=== PATIENT | female | born 1970 | race Caucasian/White ===

== ENCOUNTER 2018-08-02 18:30 | Inpatient (IN) | payer BC ==
[2018-08-02] MEDS: AZTREONAM 1 GM/NS (PMX) 50 ML IVPB (19:09)
[2018-08-02 20:00] LABS: ADD MAN DIFF? NO
[2018-08-02 20:03] LABS: WHITE BLOOD COUNT 10.2 10^3/ul (4.8-10.8)
[2018-08-02 20:03] LABS: BASOPHIL # 0.1 10^3/ul (0.0-0.1); BASOPHILS % 0.5 % (0.0-2.0); EOSINOPHILS # 0.2 10^3/ul (0.0-0.5); EOSINOPHILS % 1.5 % (0.0-7.0); HEMOGLOBIN 12.9 g/dl (12.0-16.0); LYMPHOCYTES # 1.7 10^3/ul (0.8-2.9); LYMPHOCYTES % 17.1 % (15.0-51.0); MEAN CORPUSCULAR HEMOGLOBIN 31.2 pg (29.0-33.0); MEAN CORPUSCULAR HGB CONC 34.9 g/dl (32.0-37.0); MEAN CORPUSCULAR VOLUME 89.4 fl (82.0-101.0); MEAN PLATELET VOLUME 11.3 fl (7.4-10.4); MONOCYTE # 0.5 10^3/ul (0.3-0.9); MONOCYTES % 4.8 % (0.0-11.0); NEUTROPHIL # 7.7 10^3/ul (1.6-7.5); NEUTROPHILS % 75.4 % (39.0-77.0); PLATELET COUNT 169 10^3/UL (140-415); RED BLOOD COUNT 4.14 10^6/ul (4.20-5.40); RED CELL DISTRIBUTION WIDTH 13.2 % (11.5-14.5)
[2018-08-02] MEDS: morphine 4 MG/ML VIAL IV (20:08)
[2018-08-02] MEDS: ONDANSETRON 4 MG INJ IV (20:08)
[2018-08-02] MEDS: SODIUM CHLORIDE 0.9% 1L BAG IV* (20:09)
[2018-08-02] MEDS: ACETAMINOPHEN 325 MG TAB PO (20:09)
[2018-08-02] MEDS: VANCOMYCIN 1 GM (PMX) 250 ML IVPB (20:10)
[2018-08-02 20:18] LABS: ADD UMIC YES; UR ASCORBIC ACID NEGATIVE (NEGATIVE); UR BACTERIA FEW /HPF (NONE SEEN); UR BILIRUBIN (Dip) NEGATIVE (NEGATIVE); UR BLOOD (Dip) 2+ mg/dL (NEGATIVE); UR CLARITY CLOUDY (CLEAR); UR COLOR YELLOW (YELLOW); UR GLUCOSE (Dip) 2+ mg/dL (NEGATIVE); UR KETONES (Dip) NEGATIVE (NEGATIVE); UR LEUKOCYTE ESTERASE (Dip) 2+ Leu/ul (NEGATIVE); UR NITRITE (Dip) POSITIVE (NEGATIVE); UR NONSQUAMOUS EPITHELIAL CELL 2 /HPF (NONE SEEN); UR RBC 122 /HPF (0-5); UR SPECIFIC GRAVITY (Dip) 1.015 (1.003-1.030); UR TOTAL PROTEIN (Dip) 3+ mg/dl (NEGATIVE); UR UROBILINOGEN (Dip) NEGATIVE (NEGATIVE); UR WBC > 182 /HPF (0-5)
[2018-08-02 20:23] LABS: ALANINE AMINOTRANSFERASE 53 IU/L (13-69); ALBUMIN 4.3 g/dl (3.3-4.9); ALBUMIN/GLOBULIN RATIO 1.48; ALKALINE PHOSPHATASE 138 IU/L (42-121); ANION GAP 13 (5-13); ASPARTATE AMINO TRANSFERASE 61 IU/L (15-46); BILIRUBIN,INDIRECT 0.3 mg/dl (0-1.1); BILIRUBIN,TOTAL 0.3 mg/dl (0.2-1.3); BLOOD UREA NITROGEN 13 mg/dl (7-20); CALCIUM 9.8 mg/dl (8.4-10.2); CARBON DIOXIDE 21 mmol/L (21-31); CHLORIDE 105 mmol/L (97-110); CREATININE 0.68 mg/dl (0.44-1.00); Estimated GFR > 60 mL/min (>60); GLUCOSE 204 mg/dl (70-220); PARTIAL THROMBOPLASTIN TIME 34.3 Sec (23.0-35.0); POTASSIUM 3.7 mmol/L (3.5-5.1); PROTIME 12.3 Sec (11.9-14.9); SODIUM 139 mmol/L (135-144); TOTAL PROTEIN 7.2 g/dl (6.1-8.1)
[2018-08-02 20:33] LABS: TROPONIN-I < 0.012 ng/ml (0.000-0.120)
[2018-08-02] MEDS ORDERED: NA PHOSPHATE/BIPHOS 133 ML ENEMA PR (21:30)
[2018-08-02] MEDS ORDERED: DOCUSATE SODIUM 100 MG CAP PO (21:30)
[2018-08-02] MEDS ORDERED: ALPRAZOLAM 0.25 MG TAB PO (21:30)
[2018-08-02] MEDS ORDERED: BISACODYL (EC) 5 MG TAB PO (21:30)
[2018-08-02] MEDS ORDERED: ACETAMINOPHEN 325 MG TAB PO (21:30)
[2018-08-02] MEDS ORDERED: NACL 0.9% 3 ML SYG IV (21:30)
[2018-08-02] MEDS ORDERED: VANCOMYCIN IV PER PHARMACY XX (21:30)
[2018-08-02] MEDS ORDERED: ONDANSETRON 4 MG INJ IV (21:30)
[2018-08-02] MEDS ORDERED: GLUCOSE GEL 15 GRAM TUBE PO ×2 (22:30)
[2018-08-02] MEDS ORDERED: GLUCOSE GEL 15 GRAM TUBE BUCCAL (22:30)
[2018-08-02] MEDS ORDERED: DEXTROSE 50% 50 ML SYRINGE IV ×2 (22:30)
[2018-08-02] MEDS ORDERED: GLUCAGON 1 MG INJ IM (22:30)
[2018-08-02] MEDS: OXYCODONE/ACETAMINOPHEN (5/325) TAB PO (22:49)
[2018-08-03] MEDS: ACCU-CHEK XX (02:00)
[2018-08-03] MEDS: OXYCODONE/ACETAMINOPHEN (5/325) TAB PO ×3 (04:45→17:58)
[2018-08-03] MEDS: PANTOPRAZOLE (EC) 40 MG TAB PO (05:28)
[2018-08-03] MEDS: LEVOFLOXACIN 500 MG TAB PO (05:28)
[2018-08-03 05:56] LABS: ADD MAN DIFF? NO
[2018-08-03 06:01] LABS: BASOPHILS % 0.4 % (0.0-2.0); EOSINOPHILS # 0.2 10^3/ul (0.0-0.5); EOSINOPHILS % 1.6 % (0.0-7.0); HEMATOCRIT 33.1 % (37.0-47.0); HEMOGLOBIN 11.4 g/dl (12.0-16.0); LYMPHOCYTES # 1.5 10^3/ul (0.8-2.9); LYMPHOCYTES % 15.2 % (15.0-51.0); MEAN CORPUSCULAR HEMOGLOBIN 31.7 pg (29.0-33.0); MEAN CORPUSCULAR HGB CONC 34.4 g/dl (32.0-37.0); MEAN CORPUSCULAR VOLUME 91.9 fl (82.0-101.0); MEAN PLATELET VOLUME 11.5 fl (7.4-10.4); MONOCYTE # 0.6 10^3/ul (0.3-0.9); MONOCYTES % 5.7 % (0.0-11.0); NEUTROPHIL # 7.7 10^3/ul (1.6-7.5); NEUTROPHILS % 76.4 % (39.0-77.0); PLATELET COUNT 148 10^3/UL (140-415); RED CELL DISTRIBUTION WIDTH 13.7 % (11.5-14.5)
[2018-08-03 06:24] LABS: ANION GAP 9 (5-13); BLOOD UREA NITROGEN 11 mg/dl (7-20); CARBON DIOXIDE 22 mmol/L (21-31); CHLORIDE 107 mmol/L (97-110); GLUCOSE 259 mg/dl (70-220); POTASSIUM 4.3 mmol/L (3.5-5.1); SODIUM 138 mmol/L (135-144)
[2018-08-03 06:25] LABS: ALANINE AMINOTRANSFERASE 45 IU/L (13-69); ALBUMIN 3.8 g/dl (3.3-4.9); ALBUMIN/GLOBULIN RATIO 1.22; ALKALINE PHOSPHATASE 132 IU/L (42-121); ASPARTATE AMINO TRANSFERASE 42 IU/L (15-46); BILIRUBIN,INDIRECT 0.5 mg/dl (0-1.1); BILIRUBIN,TOTAL 0.5 mg/dl (0.2-1.3); CALCIUM 8.9 mg/dl (8.4-10.2); CREATININE 0.65 mg/dl (0.44-1.00); Estimated GFR > 60 mL/min (>60); TOTAL PROTEIN 6.9 g/dl (6.1-8.1)
[2018-08-03 06:28] LABS: LACTIC ACID 2.4 mmol/L (0.5-2.0)
[2018-08-03 07:21] LABS: HEMOGLOBIN A1C 8.2 % (0-5.9)
[2018-08-03] MEDS: VANCOMYCIN 1 GM 250 ML IVPB ×2 (08:31→19:53)
[2018-08-03] MEDS: ARTIFICIAL TEARS 15 ML OPH BOTH EYES ×4 (08:31→20:39)
[2018-08-03] MEDS: metFORMIN 500 MG TAB PO ×2 (08:31→17:52)
[2018-08-03] MEDS: GEMFIBROZIL 600 MG TAB PO ×2 (08:31→20:39)
[2018-08-03] MEDS: ARIPIPRAZOLE 5 MG TAB PO (08:32)
[2018-08-03] MEDS: DICLOFENAC (EC) 75 MG TAB PO ×2 (08:32→09:00)
[2018-08-03] MEDS: HYDROXYCHLOROQUINE 200 MG TAB PO ×2 (08:32→09:00)
[2018-08-03] MEDS: AMLODIPINE 2.5 MG TAB PO ×2 (08:33→20:40)
[2018-08-03] MEDS: LOSARTAN 25 MG TAB PO ×2 (08:33→20:41)
[2018-08-03] MEDS: INSULIN ASPART [NOVOLOG] 3 ML PEN SC ×7 (08:39→20:41)
[2018-08-03] MEDS: ENOXAPARIN 30 MG/0.3 ML SYG SC (08:40)
[2018-08-03] MEDS ORDERED: PANTOPRAZOLE (EC) 40 MG TAB PO (09:00)
[2018-08-03] MEDS ORDERED: ARIPIPRAZOLE 5 MG TAB PO (09:00)
[2018-08-03 15:17] LABS: IRON 55 ug/dl (35-150)
[2018-08-03 15:26] LABS: % IRON SATURATION 19 % SAT (22-52); TOTAL IRON BINDING CAPACITY 283 ug/dl (241-421)
[2018-08-03 16:06] LABS: HEPATITIS C VIRAL ANTIBODY NEGATIVE (NEGATIVE)
[2018-08-03] MEDS: ONDANSETRON 4 MG INJ IV (19:53)
[2018-08-03] MEDS ORDERED: INSULIN GLARGINE [LANTus] (100 UNITS/ML) SYG SC (20:00)
[2018-08-03] MEDS: ATORVASTATIN 40 MG TAB PO (20:39)
[2018-08-03] MEDS: AMITRIPTYLINE 50 MG TAB PO (20:41)
[2018-08-03] MEDS: INSULIN GLARGINE [LANTus] (100 UNITS/ML) SYG SC (20:43)
[2018-08-03] MEDS: SOD FERRIC GLUC COMPLX 125 MG in SOD CHLORIDE 0.9% 100 ML IVPB (22:19)
[2018-08-04] MEDS: OXYCODONE/ACETAMINOPHEN (5/325) TAB PO ×3 (00:01→14:12)
[2018-08-04] MEDS: ACCU-CHEK XX (01:47)
[2018-08-04] MEDS: PANTOPRAZOLE (EC) 40 MG TAB PO (05:36)
[2018-08-04] MEDS: LEVOFLOXACIN 500 MG TAB PO (05:36)
[2018-08-04 06:01] LABS: ADD MAN DIFF? NO
[2018-08-04 06:05] LABS: BASOPHILS % 0.6 % (0.0-2.0); EOSINOPHILS # 0.2 10^3/ul (0.0-0.5); EOSINOPHILS % 2.6 % (0.0-7.0); HEMATOCRIT 33.4 % (37.0-47.0); HEMOGLOBIN 11.3 g/dl (12.0-16.0); LYMPHOCYTES # 2.1 10^3/ul (0.8-2.9); LYMPHOCYTES % 28.4 % (15.0-51.0); MEAN CORPUSCULAR HEMOGLOBIN 31.4 pg (29.0-33.0); MEAN CORPUSCULAR HGB CONC 33.8 g/dl (32.0-37.0); MEAN CORPUSCULAR VOLUME 92.8 fl (82.0-101.0); MEAN PLATELET VOLUME 11.7 fl (7.4-10.4); MONOCYTE # 0.4 10^3/ul (0.3-0.9); MONOCYTES % 5.9 % (0.0-11.0); NEUTROPHIL # 4.5 10^3/ul (1.6-7.5); NEUTROPHILS % 61.7 % (39.0-77.0); PLATELET COUNT 152 10^3/UL (140-415); RED CELL DISTRIBUTION WIDTH 14.1 % (11.5-14.5)
[2018-08-04 06:05] LABS: WHITE BLOOD COUNT 7.2 10^3/ul (4.8-10.8)
[2018-08-04 06:29] LABS: ALANINE AMINOTRANSFERASE 38 IU/L (13-69); ALBUMIN 3.7 g/dl (3.3-4.9); ALBUMIN/GLOBULIN RATIO 1.12; ALKALINE PHOSPHATASE 139 IU/L (42-121); ANION GAP 8 (5-13); ASPARTATE AMINO TRANSFERASE 37 IU/L (15-46); BILIRUBIN,INDIRECT 0.5 mg/dl (0-1.1); BILIRUBIN,TOTAL 0.5 mg/dl (0.2-1.3); BLOOD UREA NITROGEN 16 mg/dl (7-20); CALCIUM 9.2 mg/dl (8.4-10.2); CARBON DIOXIDE 27 mmol/L (21-31); CHLORIDE 105 mmol/L (97-110); CREATININE 0.79 mg/dl (0.44-1.00); Estimated GFR > 60 mL/min (>60); GLUCOSE 180 mg/dl (70-220); POTASSIUM 4.5 mmol/L (3.5-5.1); SODIUM 140 mmol/L (135-144)
[2018-08-04 06:33] LABS: PHOSPHORUS 3.8 mg/dl (2.5-4.9)
[2018-08-04 06:33] LABS: MAGNESIUM 1.8 mg/dl (1.7-2.5)
[2018-08-04] MEDS: INSULIN ASPART [NOVOLOG] 3 ML PEN SC ×4 (08:07→12:55)
[2018-08-04] MEDS: ARTIFICIAL TEARS 15 ML OPH BOTH EYES ×2 (08:34→12:44)
[2018-08-04] MEDS: metFORMIN 500 MG TAB PO (08:34)
[2018-08-04] MEDS: GEMFIBROZIL 600 MG TAB PO (08:35)
[2018-08-04] MEDS: ARIPIPRAZOLE 5 MG TAB PO (08:35)
[2018-08-04] MEDS: LOSARTAN 50 MG TAB PO (08:36)
[2018-08-04] MEDS: AMLODIPINE 2.5 MG TAB PO (08:36)
[2018-08-04] MEDS: ENOXAPARIN 30 MG/0.3 ML SYG SC (08:41)
[2018-08-04] MEDS: VANCOMYCIN HCL 1.25 GM in SOD CHLORIDE 0.9% 250 ML IVPB (11:17)
[2018-08-04] MEDS: CELECOXIB 200 MG CAP PO (11:17)
[2018-08-04] MEDS ORDERED: INSULIN GLARGINE [LANTus] (100 UNITS/ML) SYG SC (20:00)
== END 2018-08-04 16:00 | disposition home or self-care (01) | DRG 872 ==
LOC: E/R 18:30 → 2NE 21:03
PROVIDERS: Internal Medicine
DX: A41.9 Sepsis, unspecified organism (principal); N10 Acute pyelonephritis; E11.9 Type 2 diabetes mellitus without complications; I10 Essential (primary) hypertension; E78.5 Hyperlipidemia, unspecified; F31.9 Bipolar disorder, unspecified; D86.9 Sarcoidosis, unspecified; Z72.0 Tobacco use; E66.3 Overweight; Z68.33 Body mass index [BMI] 33.0-33.9, adult; B96.20 Unspecified Escherichia coli [E. coli] as the cause of diseases classified elsewhere
CPT/HCPCS: 36415; 71045; 74176; 80053; 80202; 81001; 82962; 83036; 83540; 83605; 83735; 84100; 84484; 84703; 85025; 85610; 85730; 86803; 87040-91; 87086; 93005; 96365; 96375; 99285-25